=== PATIENT | female | born 1980 | race Caucasian/White ===

== ENCOUNTER 2017-04-23 19:18 | Inpatient (IN) | payer MEDICARE ==
[2017-04-23 19:34] VITALS: BMI 30.7
--- NOTE | 2017-04-23 19:52 | HP ---
COWS - Scale Resting Pulse: 0= [place] 80 or Below Sweatin=Flushed/Facial Moisture Restless Observation: 1= Difficult to Sit Still Pupil Size: 2= Moderately Dilated Bone or Joint Aches: 2= Severe Diffuse Aches Runny Nose/ Eye Tearin= Runny Nose/Eyes GI Upset > 30mins: 2= Nausea/Diarrhea Tremor Observation: 2= Slight Tremor Visible Yawning Observation: 1= 1-2x During Session Anxiety or Irritability: 2=Irritable/Anxious Goose Flesh Skin: 0=Smooth Skin COWS Score: 16 Admission ROS S - HPI Chief Complaint: Withdrawal sx. Allergies/Adverse Reactions: Allergies Allergy/AdvReac Type Severity Reaction Status Date / Time pregabalin [From Lyrica] Allergy Severe Swelling Verified 01/03/16 19:26 raw tomatoes Allergy Severe Rash Uncoded 01/03/16 19:26 mushroom Allergy Intermediate Rash Uncoded 01/03/16 19:26 History of Present Illness: #6 y/o woman with a long hx. of heroin dependence is admitted for detox. Pt. has been in previous detox,reports 2-3yrs. drug free while in-pt. then attending [facility] (2012 to 2015). Exam Limitations: No Limitations - Ebola screening Have you traveled outside of the country in the last 21 days: No (N) Have you had contact with anyone from an Ebola affected area: No Do you have a fever: No - Review of Systems Constitutional: Diaphoresis EENT: reports: Nose Congestion Respiratory: reports: No Symptoms reported Cardiac: reports: No Symptoms Reported GI: reports: Diarrhea, Nausea, Abdominal cramping : reports: No Symptoms Reported Musculoskeletal: reports: Back Pain Integumentary: reports: Sweating Neuro: reports: No Symptoms reported Endocrine: reports: No Symptoms Reported Hematology: reports: No Symptoms Reported Psychiatric: reports: No Sypmtoms Reported Other Systems: Reviewed and Negative Patient History - Patient Medical History Hx Anemia: No Hx Asthma: No Hx Chronic Obstructive Pulmonary Disease (COPD): No Hx Cancer: No Hx Cardiac Disorders: No Hx Congestive Heart Failure: No Hx Hypertension: No Hx Hypercholesterolemia: No Hx Pacemaker: No HX Cerebrovascular Accident: No Hx Seizures: No Hx Dementia: No Hx Diabetes: No Hx Gastrointestinal Disorders: Yes (gerd on zantac) Hx Liver Disease: No Hx Genitourinary Disorders: No Hx Sexually Transmitted Disorders: No Hx Renal Disease (ESRD): No Hx Thyroid Disease: Yes (PAULO'S THYROIDITIS) Hx Human Immunodeficiency Virus (HIV): No Hx Hepatitis C: No Hx Depression: Yes Hx Suicide Attempt: No Hx Bipolar Disorder: No Hx Schizophrenia: No - Patient Surgical History Past Surgical History: Yes Other Surgical History: 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 43 years old - PPD History Previous Implant?: Yes Documented Results: Negative w/proof Implanted On Prior [facility] Admission?: Yes Date: 01/05/16 Results: Omm PPD to be Administered?: Yes - Reproductive History Patient is a Female of Child Bearing Age (11 -55 yrs old): Yes Last Menstrual Period: 04/10/17 Patient : No - Smoking Cessation Smoking history: Current every day smoker Have you smoked in the past 12 months: Yes Aproximately how many cigarettes per day: 15 Cigars Per Day: 0 Hx Chewing Tobacco Use: No Initiated information on smoking cessation: Yes 'Breaking Loose' booklet given: 04/23/17 - Substance & Tx. History Hx Alcohol Use: No Hx Substance Use: Yes Substance Use Type: Cocaine, Heroin Hx Substance Use Treatment: Yes (Detox,Rehab & Residential. Last detox 12/2016 [facility]) - Substances Abused Heroin Route: Injection Frequency: Daily Amount used: 15-20 bags Age of first use: 29 Date of Last Use: 04/23/17 Marijuana/Hashish Route: Smoking Frequency: 3-6 times per week Amount used: 1 joint Age of first use: 16 Date of Last Use: 04/21/17 Family Disease History - Family Disease History Family Disease History: Diabetes: Grandparent (LUNG,Breast,Alcohol), Heart Disease: Father (HTN,Hypercholesterolemia), Mother (HTN), CA: Grandparent, Other : Grandparent Admission Physical Exam BHS - Vital Signs Vital Signs: Vital Signs - 24 hr 04/23/17 19:32 Temperature 98.4 F Pulse Rate 64 Respiratory 18 Rate Blood Pressure 104/62 - Physical General Appearance: Yes: Irritable, Sweating, Anxious HEENTM: Yes: Nasal Congestion, Rhinorrhea Respiratory: Yes: Chest Non-Tender, Lungs Clear, Normal Breath Sounds Neck: Yes: Supple Breast: Yes: Breast Exam Deferred Cardiology: Yes: Regular Rhythm, Regular Rate, S1, S2 Abdominal: Yes: Normal Bowel Sounds, Non Tender, Soft Genitourinary: Yes: Within Normal Limits Back: Yes: Within Normal Limits Musculoskeletal: Yes: Muscle Pain Extremities: Yes: Tremors Neurological: Yes: Fully Oriented, Alert Integumentary: Yes: Diaphoresis Lymphatic: Yes: Within Normal Limits - Diagnostic (1) Nicotine dependence Current Visit: Yes Status: Chronic (2) Opioid dependence with withdrawal Current Visit: Yes Status: Chronic (3) Cocaine dependence, uncomplicated Current Visit: Yes Status: Acute Cleared for Admission [facility] - Detox or Rehab [facility] Level of Care: Medically Managed Detox Regimen/Protocol: Methadone [facility] Breath Alcohol Content Breath Alcohol Content: 0 Urine Pregancy Test - Result Urine Test Results: Negative- NO Line Present Urine Drug Screen - Results Drug Screen Negative: No Urine Drug Screen Results: THC-Marijuana, [place]-Cocaine, OPI-Opiates, MTD- Methadone, OXY-Oxycodone
[2017-04-23] MEDS ORDERED: MAGNESIUM HYDROX 2400MG/30ML ORAL SUSPENSION 30 ML CUP PO PRN (20:02)
[2017-04-23] MEDS ORDERED: NICOTINE POLACRILEX 2 MG GUM BC PRN (20:02)
[2017-04-23] MEDS ORDERED: diphenhydrAMINE HCL 50 MG CAPSULE PO PRN (20:02)
[2017-04-23] MEDS ORDERED: MENTHOL/PHENOL 1 EACH UD MM PRN (20:02)
[2017-04-23] MEDS ORDERED: diazePAM 5 MG TABLET PO PRN (20:02)
[2017-04-23] MEDS ORDERED: MAG HYDROX/AL HYDROX/SIMETH 30 ML UNIT-DOSE CUP PO PRN (20:02)
[2017-04-23] MEDS ORDERED: LOPERAMIDE HCL 2 MG CAPSULE PO PRN (20:02)
[2017-04-23] MEDS ORDERED: MAGNESIUM CITRATE 300 ML BOTTLE PO PRN (20:02)
[2017-04-23] MEDS ORDERED: IBUPROFEN 400 MG TABLET (FP) PO PRN (20:02)
[2017-04-23] MEDS ORDERED: P-EPHED 60MG/TRIPROLIDI 2.5MG TABLET PO PRN (20:02)
[2017-04-23] MEDS ORDERED: hydrOXYzine PAMOATE 50 MG CAPSULE (FP) PO PRN (20:02)
[2017-04-23] MEDS ORDERED: METHADONE HCL 10 MG TABLET (FOR DETOX USE ONLY) PO ONE ×2 (20:02→23:00)
[2017-04-23] MEDS ORDERED: guaiFENesin/D-METHORPHAN HB 10 ML UNIT-DOSE CUPS PO PRN (20:02)
[2017-04-23] MEDS ORDERED: ACETAMINOPHEN 325 MG TABLET (FP) PO PRN (20:02)
[2017-04-23] MEDS ORDERED: THIAMINE HCL 100 MG TABLET (FP) PO SCH (22:00)
[2017-04-23] MEDS: RANITIDINE HCL 150 MG TABLET (FP) PO SCH (22:29)
[2017-04-23] MEDS: NICOTINE 21 MG/24 HOURS TOPICAL PATCH TD SCH (22:31)
[2017-04-24] MEDS ORDERED: PRENATAL VITAMINS W/ FOLIC ACID TABLET (FP) PO SCH (10:00)
[2017-04-24] MEDS ORDERED: METHADONE HCL 10 MG TABLET (FOR DETOX USE ONLY) PO ONE (10:00)
[2017-04-24 10:30] LABS: MCHC 34.5 g/dl (32.0-36.0); MEAN CELL VOLUME 89.8 fl (80-96); MEAN PLT VOLUME 8.7 fl (7.5-11.1); PLATELET COUNT 190 K/MM3 (134-434); RDW 13.6 % (11.6-15.6); WHITE BLOOD COUNT 4.2 K/mm3 (4.0-10.0)
[2017-04-24 10:39] LABS: ALBUMIN 3.3 g/dl (3.4-5.0); ALK PHOS 93 U/L (45-117); ANION GAP 7 (8-16); BILIRUBIN,TOTAL 0.4 mg/dL (0.2-1.0); CALCIUM 8.7 mg/dL (8.5-10.1); CO2 28 mmol/L (21-32); CREATININE 1.1 mg/dL (0.55-1.02); GLUCOSE,RANDOM 81 mg/dL (74-106); SGOT/AST 16 U/L (15-37); SGPT/ALT 20 U/L (12-78); TOT PROT 6.3 g/dl (6.4-8.2)
[2017-04-24] MEDS: RANITIDINE HCL 150 MG TABLET (FP) PO SCH (10:47)
[2017-04-24] MEDS: NICOTINE 21 MG/24 HOURS TOPICAL PATCH TD SCH (10:49)
[2017-04-24 11:06] VITALS: BP 148/69; PULSE 85; TEMP 98.1
[2017-04-24 11:32] LABS: HIV 1 & 2 AB NEGATIVE; HIV 1 AGp24 NEGATIVE
--- NOTE | 2017-04-24 16:27 | PN ---
BHS COWS - Scale Resting Pulse: 0= [place] 80 or Below Sweatin=Flushed/Facial Moisture Restless Observation: 1= Difficult to Sit Still Pupil Size: 0= Normal to Room Light Bone or Joint Aches: 2= Severe Diffuse Aches Runny Nose/ Eye Tearin= Runny Nose/Eyes GI Upset > 30mins: 2= Nausea/Diarrhea Tremor Observation of Outstretched Hands: 2= Slight Tremor Visible Yawning Observation: 1= 1-2x During Session Anxiety or Irritability: 2=Irritable/Anxious Goose Flesh Skin: 0=Smooth Skin COWS Score: 14 BHS Progress Note (SOAP) Subjective: Anxiety,tremors,sweating,interrupted sleep,restless Objective: 04/24/17 16:26 Vital Signs - 8 hr 04/24/17 10:00 Temperature 98.1 F Pulse Rate 85 Respiratory 18 Rate Blood Pressure 148/69 Laboratory Last Values WBC 4.2 K/mm3 (4.0-10.0) D 04/24/17 07:45 RBC 4.42 M/mm3 (3.60-5.2) 04/24/17 07:45 Hgb 13.7 GM/dL (10.7-15.3) 04/24/17 07:45 Hct 39.7 % (32.4-45.2) 04/24/17 07:45 MCV 89.8 fl (80-96) 04/24/17 07:45 MCH 31.0 pg (25.7-33.7) 04/24/17 07:45 MCHC 34.5 g/dl (32.0-36.0) 04/24/17 07:45 RDW 13.6 % (11.6-15.6) 04/24/17 07:45 Plt Count 190 K/MM3 (134-434) 04/24/17 07:45 MPV 8.7 fl (7.5-11.1) 04/24/17 07:45 Sodium 139 mmol/L (136-145) 04/24/17 07:45 Potassium 4.0 mmol/L (3.5-5.1) 04/24/17 07:45 Chloride 104 mmol/L (98-107) 04/24/17 07:45 Carbon Dioxide 28 mmol/L (21-32) 04/24/17 07:45 Anion Gap 7 (8-16) L 04/24/17 07:45 BUN 13 mg/dL (7-18) 04/24/17 07:45 Creatinine 1.1 mg/dL (0.55-1.02) H D 04/24/17 07:45 Creat Clearance w eGFR 55.89 (>60) 04/24/17 07:45 Random Glucose 81 mg/dL (74-106) D 04/24/17 07:45 Calcium 8.7 mg/dL (8.5-10.1) 04/24/17 07:45 Total Bilirubin 0.4 mg/dL (0.2-1.0) D 04/24/17 07:45 AST 16 U/L (15-37) D 04/24/17 07:45 ALT 20 U/L (12-78) D 04/24/17 07:45 Alkaline Phosphatase 93 U/L (45-117) D 04/24/17 07:45 Total Protein 6.3 g/dl (6.4-8.2) L 04/24/17 07:45 Albumin 3.3 g/dl (3.4-5.0) L 04/24/17 07:45 RPR Titer Nonreactive (NONREACTIVE) 04/24/17 07:45 HIV 1&2 Antibody Screen Negative 04/24/17 07:45 HIV P24 Antigen Negative 04/24/17 07:45 labs noted Assessment: 04/24/17 16:27 Withdrawal sx. Plan: Continue detox
--- NOTE | 2017-04-24 17:07 | DS ---
[facility] Detox Discharge Summary Admission Date: 04/23/17 Discharge Date: 04/24/17 - History Present History: Cannabis Dependence, Opioid Dependence Pertinent Past History: MDD - Physical Exam Results Vital Signs: Vital Signs Temperature 98.1 F 04/24/17 10:00 Pulse Rate 85 04/24/17 10:00 Respiratory Rate 18 04/24/17 10:00 Blood Pressure 148/69 04/24/17 10:00 O2 Sat by Pulse Oximetry (%) Pertinent Admission Physical Exam Findings: Withdrawal sx. Laboratory Last Values WBC 4.2 K/mm3 (4.0-10.0) D 04/24/17 07:45 RBC 4.42 M/mm3 (3.60-5.2) 04/24/17 07:45 Hgb 13.7 GM/dL (10.7-15.3) 04/24/17 07:45 Hct 39.7 % (32.4-45.2) 04/24/17 07:45 MCV 89.8 fl (80-96) 04/24/17 07:45 MCH 31.0 pg (25.7-33.7) 04/24/17 07:45 MCHC 34.5 g/dl (32.0-36.0) 04/24/17 07:45 RDW 13.6 % (11.6-15.6) 04/24/17 07:45 Plt Count 190 K/MM3 (134-434) 04/24/17 07:45 MPV 8.7 fl (7.5-11.1) 04/24/17 07:45 Sodium 139 mmol/L (136-145) 04/24/17 07:45 Potassium 4.0 mmol/L (3.5-5.1) 04/24/17 07:45 Chloride 104 mmol/L (98-107) 04/24/17 07:45 Carbon Dioxide 28 mmol/L (21-32) 04/24/17 07:45 Anion Gap 7 (8-16) L 04/24/17 07:45 BUN 13 mg/dL (7-18) 04/24/17 07:45 Creatinine 1.1 mg/dL (0.55-1.02) H D 04/24/17 07:45 Creat Clearance w eGFR 55.89 (>60) 04/24/17 07:45 Random Glucose 81 mg/dL (74-106) D 04/24/17 07:45 Calcium 8.7 mg/dL (8.5-10.1) 04/24/17 07:45 Total Bilirubin 0.4 mg/dL (0.2-1.0) D 04/24/17 07:45 AST 16 U/L (15-37) D 04/24/17 07:45 ALT 20 U/L (12-78) D 04/24/17 07:45 Alkaline Phosphatase 93 U/L (45-117) D 04/24/17 07:45 Total Protein 6.3 g/dl (6.4-8.2) L 04/24/17 07:45 Albumin 3.3 g/dl (3.4-5.0) L 04/24/17 07:45 RPR Titer Nonreactive (NONREACTIVE) 04/24/17 07:45 HIV 1&2 Antibody Screen Negative 04/24/17 07:45 HIV P24 Antigen Negative 04/24/17 07:45 labs noted - Treatment Patient has Accepted a Rehab Referral to: NA meetings - Medication Discharge Medications: Ambulatory Orders NK [No Known Home Medication] 04/23/17 - Diagnosis (1) Nicotine dependence Current Visit: Yes Status: Chronic (2) Opioid dependence with withdrawal Current Visit: Yes Status: Chronic (3) Cocaine dependence, uncomplicated Current Visit: Yes Status: Acute - AMA Did Patient Leave Against Medical Advice: Yes (Medically stable)
--- NOTE | 2017-04-25 09:59 | EKG ---
Test Reason : Blood Pressure : / mmHG Vent. Rate : 055 BPM Atrial Rate : 055 BPM P-R Int : 168 ms QRS Dur : 088 ms QT Int : 424 ms P-R-T Axes : 054 060 054 degrees QTc Int : 405 ms SINUS BRADYCARDIA OTHERWISE NORMAL ECG NO PREVIOUS ECGS AVAILABLE Confirmed by ARIELLA HART MD ([id number]) on 04/25/2017 9:58:36 AM Referred By: Confirmed By:ARIELLA HART MD
[2017-04-25] MEDS ORDERED: METHADONE HCL 5 MG TABLET (FOR DETOX USE ONLY) PO ONE (10:00)
[2017-04-26] MEDS ORDERED: METHADONE HCL 5 MG TABLET (FOR DETOX USE ONLY) PO ONE (10:00)
[2017-04-27] MEDS ORDERED: METHADONE HCL 10 MG TABLET (FOR DETOX USE ONLY) PO ONE (10:00)
[2017-04-28] MEDS ORDERED: METHADONE HCL 5 MG TABLET (FOR DETOX USE ONLY) PO ONE (06:00)
== END 2017-04-24 16:59 | disposition left against medical advice (07) | DRG 770 ==
LOC: YASAS 19:18 → Y6N 19:28
PROVIDERS: ADMIT Internal Medicine; ATTEND Internal Medicine
PROC: HZ2ZZZZ Detoxification Services for Substance Abuse Treatment (ICD-10-PCS; principal; 2017-04-24)
DX: F11.23 Opioid dependence with withdrawal (principal); F14.20 Cocaine dependence, uncomplicated; F17.210 Nicotine dependence, cigarettes, uncomplicated
CPT/HCPCS: 36415; 80053; 85027; 86593; 87389; 93005; 93010

== ENCOUNTER 2017-06-13 20:18 | Inpatient (IN) | payer SELFPAY ==
[2017-06-13 20:57] VITALS: BMI 31.6
--- NOTE | 2017-06-13 21:47 | HP ---
COWS - Scale Resting Pulse: 0= [place] 80 or Below Sweatin= Chills/Flushing Restless Observation: 0= Sits Still Pupil Size: 0= Normal to Room Light Bone or Joint Aches: 2= Severe Diffuse Aches Runny Nose/ Eye Tearin= Runny Nose/Eyes GI Upset > 30mins: 1= Stomach Cramp Tremor Observation: 2= Slight Tremor Visible Yawning Observation: 1= 1-2x During Session Anxiety or Irritability: 2=Irritable/Anxious Goose Flesh Skin: 3=Piloerection COWS Score: 14 Admission ROS S - HPI Chief Complaint: withdrawal sx Allergies/Adverse Reactions: Allergies Allergy/AdvReac Type Severity Reaction Status Date / Time pregabalin [From Lyrica] Allergy Severe Swelling Verified 06/13/17 20:48 raw tomatoes Allergy Severe Rash Uncoded 06/13/17 20:48 mushroom Allergy Intermediate Rash Uncoded 06/13/17 20:48 History of Present Illness: 36 years old female with long history of opioid nicotine cocaine marijuana dependence Exam Limitations: No Limitations - Ebola screening Have you traveled outside of the country in the last 21 days: No (N) Have you had contact with anyone from an Ebola affected area: No Have you been sick,other than usual withdrawal symptoms: No Do you have a fever: No - Review of Systems Constitutional: Changes in sleep, Weight Stable EENT: reports: No Symptoms Reported Respiratory: reports: No Symptoms reported Cardiac: reports: No Symptoms Reported GI: reports: Nausea, Poor Fluid Intake, Indigestion, Abdominal cramping : reports: No Symptoms Reported Musculoskeletal: reports: Back Pain, Joint Pain, Muscle Pain, Neck Pain Integumentary: reports: Change in Color (right neck) Neuro: reports: Tremors Endocrine: reports: No Symptoms Reported Hematology: reports: No Symptoms Reported Psychiatric: reports: Judgement Intact, Orientated x3, Depressed Other Systems: Reviewed and Negative Patient History - Patient Medical History Hx Anemia: No Hx Asthma: No Hx Chronic Obstructive Pulmonary Disease (COPD): No Hx Cancer: No Hx Cardiac Disorders: No Hx Congestive Heart Failure: No Hx Hypertension: No Hx Hypercholesterolemia: No Hx Pacemaker: No HX Cerebrovascular Accident: No Hx Seizures: No Hx Dementia: No Hx Diabetes: No Hx Gastrointestinal Disorders: No Hx Liver Disease: No Hx Genitourinary Disorders: No Hx Sexually Transmitted Disorders: No Hx Renal Disease (ESRD): No Hx Thyroid Disease: Yes (PAULO'S THYROIDITIS/no treatment) Hx Human Immunodeficiency Virus (HIV): No Hx Hepatitis C: No Hx Depression: Yes Hx Suicide Attempt: No Hx Bipolar Disorder: No Hx Schizophrenia: No - Patient Surgical History Past Surgical History: No Hx Neurologic Surgery: No Hx Cataract Extraction: No Hx Cardiac Surgery: No Hx Lung Surgery: No Hx Breast Surgery: No Hx Breast Biopsy: No Hx Abdominal Surgery: No Hx Appendectomy: No Hx Cholecystectomy: No Hx Genitourinary Surgery: No Hx Section: No Hx Orthopedic Surgery: No Hx Hysterectomy: No Other Surgical History: 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 43 years old Anesthesia Reaction: No - PPD History Previous Implant?: Yes Documented Results: Negative w/proof Implanted On Prior [facility] Admission?: Yes Date: 04/25/17 Results: Omm PPD to be Administered?: No - Reproductive History Patient is a Female of Child Bearing Age (11 -55 yrs old): Yes Last Menstrual Period: 06/01/17 Patient : No - Smoking Cessation Smoking history: Current every day smoker Have you smoked in the past 12 months: Yes Aproximately how many cigarettes per day: 20 Cigars Per Day: 0 Hx Chewing Tobacco Use: No Initiated information on smoking cessation: Yes 'Breaking Loose' booklet given: 06/13/17 - Substance & Tx. History Hx Alcohol Use: No Hx Substance Use: Yes Substance Use Type: Cocaine, Heroin, Marijuana Hx Substance Use Treatment: Yes (04/23-04/24/17 [facility] - Substances Abused Heroin Route: Injection Frequency: Daily Amount used: 10 bags Age of first use: 30 Date of Last Use: 06/13/17 Family Disease History - Family Disease History Family Disease History: Diabetes: Grandparent (LUNG,Breast,Alcohol), Heart Disease: Father (HTN,Hypercholesterolemia), Mother (HTN), CA: Grandparent, Other : Grandparent Admission Physical Exam BHS - Vital Signs Vital Signs: Vital Signs - 24 hr 06/13/17 20:51 Temperature 96.9 F L Pulse Rate 62 Respiratory 18 Rate Blood Pressure 103/65 - Physical General Appearance: Yes: Appropriately Dressed, Mild Distress, Obese, Tremorous , Irritable, Sweating, Anxious HEENTM: Yes: Hearing grossly Normal, Normal ENT Inspection, Normocephalic, Normal Voice Respiratory: Yes: Chest Non-Tender, Lungs Clear, Normal Breath Sounds, No Respiratory Distress, No Accessory Muscle Use Neck: Yes: Supple, Trachea in good position Breast: Yes: Breasts Symetrical Cardiology: Yes: Regular Rhythm, Regular Rate, S1, S2 Abdominal: Yes: Non Tender, Soft, Decreased BS Genitourinary: Yes: Within Normal Limits Back: Yes: Normal Inspection Musculoskeletal: Yes: full range of Motion, Gait Steady, Back pain, Muscle Pain Extremities: Yes: Normal Range of Motion, Non-Tender, Tremors Neurological: Yes: Fully Oriented, Alert, Motor Strength 5/5, Normal Response, Depressed Affect Integumentary: Yes: Warm, Track Acharya Lymphatic: Yes: Within Normal Limits - Diagnostic (1) Nicotine dependence Current Visit: Yes Status: Acute (2) Opioid dependence with withdrawal Current Visit: Yes Status: Acute (3) GERD (gastroesophageal reflux disease) Current Visit: Yes Status: Chronic Qualifiers: Esophagitis presence: without esophagitis Qualified Code(s): K21.9 - Gastro-esophageal reflux disease without esophagitis (4) Constipation Current Visit: Yes Status: Chronic Qualifiers: Constipation type: slow transit constipation Qualified Code(s): K59.01 - Slow transit constipation (5) MDD (major depressive disorder) Current Visit: Yes Status: Suspected Qualifiers: Major depression recurrence: recurrent Active/Remission status: in partial remission Qualified Code(s): F33.41 - Major depressive disorder, recurrent, in partial remission Cleared for Admission [facility] - Detox or Rehab [facility] Level of Care: Medically Managed Detox Regimen/Protocol: Methadone [facility] Breath Alcohol Content Breath Alcohol Content: 0 Urine Pregancy Test - Result Urine Test Results: Negative- NO Line Present Urine Drug Screen - Results Drug Screen Negative: No Urine Drug Screen Results: THC-Marijuana, [place]-Cocaine, OPI-Opiates, OXY- Oxycodone
[2017-06-13] MEDS ORDERED: LOPERAMIDE HCL 2 MG CAPSULE PO PRN (21:55)
[2017-06-13] MEDS ORDERED: MAGNESIUM HYDROX 2400MG/30ML ORAL SUSPENSION 30 ML CUP PO PRN (21:55)
[2017-06-13] MEDS ORDERED: MAG HYDROX/AL HYDROX/SIMETH 30 ML UNIT-DOSE CUP PO PRN (21:55)
[2017-06-13] MEDS ORDERED: guaiFENesin/D-METHORPHAN HB 10 ML UNIT-DOSE CUPS PO PRN (21:55)
[2017-06-13] MEDS ORDERED: IBUPROFEN 400 MG TABLET (FP) PO PRN (21:55)
[2017-06-13] MEDS ORDERED: METHADONE HCL 10 MG TABLET (FOR DETOX USE ONLY) PO ONE ×2 (21:55→23:00)
[2017-06-13] MEDS ORDERED: MENTHOL/PHENOL 1 EACH UD MM PRN (21:55)
[2017-06-13] MEDS ORDERED: P-EPHED 60MG/TRIPROLIDI 2.5MG TABLET PO PRN (21:55)
[2017-06-13] MEDS ORDERED: diphenhydrAMINE HCL 50 MG CAPSULE PO PRN (21:55)
[2017-06-13] MEDS ORDERED: MAGNESIUM CITRATE 300 ML BOTTLE PO PRN (21:55)
[2017-06-13] MEDS ORDERED: ACETAMINOPHEN 325 MG TABLET (FP) PO PRN (21:55)
[2017-06-13] MEDS ORDERED: NICOTINE POLACRILEX 4 MG GUM BC PRN (21:55)
[2017-06-13] MEDS ORDERED: SENNOSIDES 8.6MG TABLET (FP) PO PRN (22:05)
[2017-06-13] MEDS: diazePAM 5 MG TABLET PO PRN (22:54)
[2017-06-13] MEDS: THIAMINE HCL 100 MG TABLET (FP) PO SCH (22:55)
[2017-06-13 23:21] LABS: URINE APPEARANCE SLCLOUDY; URINE BILIRUBIN NEGATIVE (NEGATIVE); URINE BLOOD NEGATIVE (NEGATIVE); URINE COLOR YELLOW; URINE GLUCOSE (UA) NEGATIVE (NEGATIVE); URINE KETONE NEGATIVE (NEGATIVE); URINE LEUK ESTERASE 1+ (NEGATIVE); URINE NITRITE NEGATIVE (NEGATIVE); URINE PROTEIN NEGATIVE (NEGATIVE); URINE UROBILINOGEN NEGATIVE mg/dL (0.2-1.0)
[2017-06-13 23:31] LABS: URINE MUCUS RARE; URINE RBC 1 /hpf (0-3); URINE WBC 12 /hpf (3-5)
[2017-06-14 09:48] LABS: MCH 30.8 pg (25.7-33.7); MEAN CELL VOLUME 90.5 fl (80-96); PLATELET COUNT 184 K/MM3 (134-434); RDW 13.7 % (11.6-15.6); WHITE BLOOD COUNT 4.5 K/mm3 (4.0-10.0)
[2017-06-14] MEDS ORDERED: PRENATAL VITAMINS W/ FOLIC ACID TABLET (FP) PO SCH (10:00)
[2017-06-14] MEDS ORDERED: METHADONE HCL 10 MG TABLET (FOR DETOX USE ONLY) PO ONE (10:00)
[2017-06-14] MEDS ORDERED: NICOTINE 21 MG/24 HOURS TOPICAL PATCH TD SCH (10:00)
[2017-06-14 10:20] LABS: ALBUMIN 3.1 g/dl (3.4-5.0); ALK PHOS 91 U/L (45-117); ANION GAP 6 (8-16); BILIRUBIN,TOTAL 0.4 mg/dL (0.2-1.0); CALCIUM 8.2 mg/dL (8.5-10.1); CO2 27 mmol/L (21-32); CREATININE 0.9 mg/dL (0.55-1.02); GLUCOSE,RANDOM 97 mg/dL (74-106); SGOT/AST 15 U/L (15-37); SGPT/ALT 24 U/L (12-78); TOT PROT 6.1 g/dl (6.4-8.2)
--- NOTE | 2017-06-14 10:30 | PN ---
BHS COWS - Scale Resting Pulse: 0= [place] 80 or Below Sweatin= Chills/Flushing Restless Observation: 1= Difficult to Sit Still Pupil Size: 1= Pupils >than Normal Bone or Joint Aches: 1= Mild Discomfort Runny Nose/ Eye Tearin= Nasal Congestion GI Upset > 30mins: 2= Nausea/Diarrhea Tremor Observation of Outstretched Hands: 1= Tremor [place], Not Seen Yawning Observation: 1= 1-2x During Session Anxiety or Irritability: 2=Irritable/Anxious Goose Flesh Skin: 3=Piloerection COWS Score: 14 BHS Progress Note (SOAP) Subjective: nausea, sweats, interrupted sleep, anxiety, tremors Objective: 06/14/17 10:29 Vital Signs - 8 hr 06/14/17 06/14/17 03:30 06:00 Temperature 97.7 F Pulse Rate 63 Respiratory 20 18 Rate Blood Pressure 103/57 Laboratory Tests 06/13/17 06/14/17 23:10 07:00 WBC 4.5 RBC 4.32 Hgb 13.3 Hct 39.1 MCV 90.5 MCH 30.8 MCHC 34.0 RDW 13.7 Plt Count 184 MPV 8.0 Urine Color Yellow Urine Appearance Slcloudy Urine pH 5.0 Ur Specific [place] >= 1.030 H Urine Protein Negative Urine Glucose (UA) Negative Urine Ketones Negative Urine Blood Negative Urine Nitrite Negative Urine Bilirubin Negative Urine Urobilinogen Negative Urine RBC 1 Urine WBC 12 Ur Epithelial Cells Few Urine Mucus Rare labs pending Assessment: 06/14/17 10:30 withdrawal sx Plan: cont detox
[2017-06-14] MEDS: RANITIDINE HCL 150 MG TABLET (FP) PO SCH ×2 (10:48→22:20)
[2017-06-14] MEDS: diazePAM 5 MG TABLET PO PRN ×3 (10:48→22:20)
[2017-06-14 11:22] LABS: HIV 1 & 2 AB NEGATIVE; HIV 1 AGp24 NEGATIVE
--- NOTE | 2017-06-14 12:16 | CONSULT ---
[facility] Psychiatric Consult - Data Date of interview: 06/14/17 Admission source: [facility] Identifying data: This is a 36 year old single female, wihtout children, unemployed and currently homelss. Substance Abuse History: Reports using heroin up to 10 bags a day, started with painkilles in 2009 states she had shingless and was prescribed oxycodone, then started heroin. She smokes cigarettes 1 PPD. Was on MMTP in the past. Several rehab/detox treatments. Medical History: Awais Thyroiditis, s/p removal thyroid benigh tumor. Psychiatric History: First psychiatric treatment in 2009, reports she had life stressors and was seeing a [facility] psychiatrist who started with Paxil, Celexa , Lexapro and she was still depressed and he switched to Doxepin 25 mg po hs and Cymbalta 120 mg which were more effective especially Cymbalta for pain control , states she stopped medications in 2014, feeling depressed, anxious and unable to sleep. Physical/Sexual Abuse/Trauma History: Denies history of sexual, physical and verbal abuse. Mental Status Exam - Mental Status Exam Alert and Oriented to: Time, Place, Person Cognitive Function: Grossly Intact Patient Appearance: Well Groomed Mood: Depressed, Sad, Anxious Affect: Appropriate, Mood Congruent Patient Behavior: Appropriate, Cooperative Speech Pattern: Clear, Appropriate Voice Loudness: Normal Thought Process: Intact, Goal Oriented Thought Disorder: Not Present Hallucinations: Denies Suicidal Ideation: Denies Homicidal Ideation: Denies Insight/Judgement: Fair Sleep: Poorly, Difficulty falling asleep Appetite: Fair Muscle strength/Tone: Normal Gait/Station: Normal Psychiatric Findings - Problem List ([place] 1, 2,3) (1) Nicotine dependence Current Visit: Yes Status: Acute (2) Opioid dependence with withdrawal Current Visit: Yes Status: Acute (3) MDD (major depressive disorder) Current Visit: Yes Status: Suspected Qualifiers: Major depression recurrence: recurrent Active/Remission status: in partial remission Qualified Code(s): F33.41 - Major depressive disorder, recurrent, in partial remission - Initial Treatment Plan Initial Treatment Plan: will restart Cymbalta 30 mg po bid, Doxepin 25 mg po hs , continue detox. protocal.
[2017-06-14] MEDS ORDERED: DOXEPIN HCL 25 MG CAPSULE PO SCH (22:00)
[2017-06-14] MEDS ORDERED: DULoxetine HCL 30 MG CAPSULE.DR (FP) PO SCH (22:00)
[2017-06-14] MEDS: THIAMINE HCL 100 MG TABLET (FP) PO SCH (22:20)
--- NOTE | 2017-06-14 22:30 | EKG ---
Test Reason : Blood Pressure : / mmHG Vent. Rate : 060 BPM Atrial Rate : 060 BPM P-R Int : 160 ms QRS Dur : 082 ms QT Int : 396 ms P-R-T Axes : 063 070 064 degrees QTc Int : 396 ms NORMAL SINUS RHYTHM NONSPECIFIC T WAVE ABNORMALITIES WHEN COMPARED WITH ECG OF 23-APR-2017 19:45, T WAVE ABNORMALITIES IN COMPRABALE LEADS REPEAT EKG IF CLINICALLY INDICATED Confirmed by DARRICK BRAY MD ([id number]) on 06/14/2017 10:30:14 PM Referred By: Confirmed By:DARRICK BRAY MD
[2017-06-15] MEDS: diazePAM 5 MG TABLET PO PRN (07:05)
--- NOTE | 2017-06-15 09:44 | PN ---
[facility] Progress Note Note: pt states I want to sign out because I just want to go home. Pt refused to explain her reason for leaving. A collaborating team with medical, nursing and counselor involved to assist with pt needs however, pt insisted on leaving and signed out AMA.
--- NOTE | 2017-06-15 09:48 | DS ---
[facility] Detox Discharge Summary Admission Date: 06/13/17 - History Present History: Cocaine Dependence, Opioid Dependence, Sedative Dependence - Physical Exam Results Vital Signs: Vital Signs Temperature 98.1 F 06/14/17 22:26 Pulse Rate 80 06/14/17 22:26 Respiratory Rate 18 06/15/17 03:30 Blood Pressure 127/76 06/14/17 22:26 O2 Sat by Pulse Oximetry (%) - Medication Discharge Medications: Ambulatory Orders Doxepin HCl [[place] -] 25 mg PO HS #30 tab 06/14/17 Duloxetine HCl [Cymbalta -] 30 mg PO BID #60 tab 06/14/17 - Diagnosis (1) Nicotine dependence Current Visit: Yes Status: Chronic (2) Opioid dependence with withdrawal Current Visit: Yes Status: Chronic (3) Constipation Current Visit: Yes Status: Chronic Qualifiers: Constipation type: slow transit constipation Qualified Code(s): K59.01 - Slow transit constipation (4) GERD (gastroesophageal reflux disease) Current Visit: Yes Status: Chronic Qualifiers: Esophagitis presence: without esophagitis Qualified Code(s): K21.9 - Gastro-esophageal reflux disease without esophagitis (5) MDD (major depressive disorder) Current Visit: Yes Status: Suspected Qualifiers: Major depression recurrence: recurrent Active/Remission status: in partial remission Qualified Code(s): F33.41 - Major depressive disorder, recurrent, in partial remission (6) anxiety and depression Current Visit: No Status: Active (7) hypothyroiodism by history no med Current Visit: No Status: Chronic (8) s/p surgry for thyroid mass benign at age of 43 years old Current Visit: No Status: Active (9) Cocaine dependence, uncomplicated Current Visit: Yes Status: Chronic (10) Sedative dependence Current Visit: No Status: Chronic - AMA Did Patient Leave Against Medical Advice: Yes (going home)
[2017-06-15] MEDS ORDERED: METHADONE HCL 5 MG TABLET (FOR DETOX USE ONLY) PO ONE (10:00)
[2017-06-15 10:27] VITALS: BP 109/58; PULSE 60; TEMP 97.9
[2017-06-16] MEDS ORDERED: METHADONE HCL 5 MG TABLET (FOR DETOX USE ONLY) PO ONE (10:00)
[2017-06-17] MEDS ORDERED: METHADONE HCL 10 MG TABLET (FOR DETOX USE ONLY) PO ONE (10:00)
[2017-06-18] MEDS ORDERED: METHADONE HCL 5 MG TABLET (FOR DETOX USE ONLY) PO ONE (06:00)
== END 2017-06-15 09:56 | disposition left against medical advice (07) | DRG 770 ==
LOC: YASAS 20:18 → Y6N 21:05
PROVIDERS: ADMIT Internal Medicine; ATTEND Internal Medicine
PROC: HZ2ZZZZ Detoxification Services for Substance Abuse Treatment (ICD-10-PCS; principal; 2017-06-13)
DX: F11.23 Opioid dependence with withdrawal (principal); F13.20 Sedative, hypnotic or anxiolytic dependence, uncomplicated; F17.210 Nicotine dependence, cigarettes, uncomplicated; F34.1 Dysthymic disorder; F41.8 Other specified anxiety disorders; K21.9 Gastro-esophageal reflux disease without esophagitis; K59.01 Slow transit constipation; E03.9 Hypothyroidism, unspecified; Z59.0 Homelessness
CPT/HCPCS: 36415; 80053; 81003; 81015; 85027; 86593; 87389; 93005; 93010